=== PATIENT | male | born 1995 | race American Indian/Alaskan Native ===

== ENCOUNTER 2017-06-01 18:54 | Emergency (ER) | payer SELFPAY ==
[2017-06-01 19:55] LABS: Basophils % (Auto) 0.4 % (0.0-1.8); Eosinophils % (Auto) 0.3 % (0.0-4.3); Hematocrit 51.9 % (35.5-45.6); Hemoglobin 17.1 gm/dl (11.8-15.2); Mean Corpuscular HGB Conc 33 % (32-34); Mean Corpuscular Hemoglobin 30 pg (28-32); Mean Corpuscular Volume 91 fl (84-94); Platelet Count 264 K/mm3 (140-440); Red Blood Count 5.72 M/mm3 (3.65-5.03); Red Cell Distribution Width 12.9 % (13.2-15.2); White Blood Count 12.8 K/mm3 (4.5-11.0)
[2017-06-01 20:11] LABS: Alanine Aminotransferase 15 units/L (7-56); Albumin 4.8 g/dL (3.9-5); Albumin/Globulin Ratio 1.5 %; Alkaline Phosphatase 110 units/L (35-129); Anion Gap 16 mmol/L; Blood Urea Nitrogen 15 mg/dL (9-20); Calcium 9.4 mg/dL (8.4-10.2); Carbon Dioxide 28 mmol/L (22-30); Chloride 101.4 mmol/L (98-107); Glucose 113 mg/dL (75-100); Lipase 49 units/L (13-60); Potassium 4.3 mmol/L (3.6-5.0); Sodium 141 mmol/L (137-145)
[2017-06-01 21:26] LABS: Bilirubin,Urine NEG (Negative); Blood,Urine NEG (Negative); Ketones,Urine NEG (Negative); Leukocyte Esterase,Urine NEG (Negative); Mucus,Urine 1+ /HPF; Nitrite,Urine NEG (Negative); Sperm,Urine FEW /HPF (NP); Urobilinogen,Urine < 2.0 mg/dL (<2.0)
[2017-06-01] MEDS ORDERED: ZOFRAN ODT PO ONE (21:41)
[2017-06-01] MEDS ORDERED: PEPTO BISMOL PO ONE (21:41)
--- NOTE | 2017-06-01 21:54 | Emergency Department Report ---
HPI - General Chief Complaint: Abdominal Pain Time Seen by Provider: 06/01/17 21:40 - HPI HPI: This is a 21-year-old male with no prior medical history presents to ED complaining of generalized abdominal pain 2 days. Patient states he was at work when he felt some abdominal pain and that he was hungry so he went eat lunch which was pizza and wings. Patient states couple of hours after that he had 3 episodes of vomiting. Patient states he was able to stay out of work and cut he was here better the next day. Patient states yesterday he still was not able to eat. Patient states he is able to sustain fluids but tried to eat him mac & cheese earlier today but threw it up. Patient states abdominal pain is aching in nature and generalized, nonradiating, 4 out of 10 intensity. He denies diarrhea, fever, shortness of breath, chest pain, back pain, any urinary symptoms ED Past Medical Hx - Past Medical History Previous Medical History?: No - Surgical History Past Surgical History?: Yes Additional Surgical History: knee - Social History Smoking Status: Never Smoker Substance Use Type: None - Medications Home Medications: Home Medications Medication Instructions Recorded Confirmed Last Taken Type Bismuth Subsalicylate [Pepto 262 mg PO BID #100 ml 06/01/17 Unknown Rx Bismol] Ondansetron [Zofran ODT TAB] 8 mg PO Q8H #20 tab.rapdis 06/01/17 Unknown Rx ED Review of Systems ROS: Stated complaint: VOMITING Other details as noted in HPI Constitutional: denies: chills, fever Eyes: denies: eye pain, eye discharge, vision change ENT: denies: ear pain, throat pain Respiratory: denies: cough, shortness of breath, wheezing Cardiovascular: denies: chest pain, palpitations Endocrine: no symptoms reported Gastrointestinal: nausea, vomiting. denies: abdominal pain, diarrhea, constipation, hematemesis, melena, hematochezia Genitourinary: denies: urgency, dysuria, frequency, hematuria, discharge, testicular pain Musculoskeletal: denies: back pain, joint swelling, arthralgia Skin: denies: rash, lesions, pruritus Neurological: denies: headache, weakness, numbness, paresthesias, confusion Psychiatric: denies: anxiety, depression Hematological/Lymphatic: denies: easy bleeding, easy bruising Physical Exam - Physical Exam Vital Signs: Vital Signs 06/01/17 19:30 Temperature 71 F L Pulse Rate 71 Respiratory 16 Rate Blood Pressure 132/74 O2 Sat by Pulse 97 Oximetry Physical Exam: GENERAL: Alert and oriented x3, no apparent distress, Normal Gait, atraumatic. HEAD: Head is normocephalic and a-traumatic. MOUTH:Mouth is well hydrated and without lesions. Tonsils nonerythematous or swollen, Uvula midline, Tongue not elevated. Mucous membranes are moist. Posterior pharynx clear, no exudate or lesions. Patent airways. NECK: Supple. Non edematous, No lymphadenopathy or thyromegaly. No C-spine tenderness LUNGS: Symetrical with respiration, No wheezing, no rales or crackles, CTAB. HEART: S1, S2 present, regular rate and rhythm without murmur, no rubs, no gallops. Non tender to palpation ABDOMEN: No organomegaly was noted,Positive bowel sounds, soft, and non- distended. . Nontender to palpation on all Quadrants, NO CVA tenderness. BACK: Full range of motion, no spinal tenderness, nontender to palpation. . SKIN: Warm and dry, No lesions, No ulceration or induration present. ED Course Vital Signs 06/01/17 19:30 Temperature 71 F L Pulse Rate 71 Respiratory 16 Rate Blood Pressure 132/74 O2 Sat by Pulse 97 Oximetry ED Medical Decision Making - Lab Data Result diagrams: 06/01/17 19:38 06/01/17 19:38 - Medical Decision Making 21-year-old male presents a gastroenteritis ED course: Patient received bismuth and Zofran ED. CBC, CMP within normal limits. Mildly elevated white blood cells Discussed soft diet with the patient. Discussed the patient brought diet Discussed patient to drink plenty of fluids and take medications as prescribed. Patient had no vomiting in episode and ED. Patient had an uneventful ED stay Discuss to follow up with primary care physician Patient is laying comfortably resting in ED alert and oriented 3 and states he will follow-up Critical care attestation.: If time is entered above; I have spent that time in minutes in the direct care of this critically ill patient, excluding procedure time. ED Disposition Clinical Impression: Gastroenteritis due to food toxin Disposition: DC- TO HOME OR SELFCARE Is pt being admited?: No Does the pt Need Aspirin: No Condition: Stable Instructions: Food Poisoning (ED), Gastroenteritis (ED), Soft Diet (ED) Prescriptions: Bismuth Subsalicylate [Pepto Bismol] 262 mg PO BID #100 ml Ondansetron [Zofran ODT TAB] 8 mg PO Q8H #20 tab.rapdis Referrals: PRIMARY CARE, [Primary Care Provider] - 3-5 Days LEONOR SON MD [Staff Physician] - 3-5 Days [facility] [Outside] - 3-5 Days [facility] [Outside] - 3-5 Days Forms: Accompanied Note, Work/School Release Form(ED) Time of Disposition: 22:01
[2017-06-01 22:18] VITALS: BP 127/76
== END 2017-06-01 22:18 | disposition home or self-care (01) ==
LOC: ED 18:54
DX: A05.9 Bacterial foodborne intoxication, unspecified (principal)
CPT/HCPCS: 36415; 80053; 81001; 83690; 85025; 99283; Q0162